=== PATIENT | female | born 1965 | race African-American/Black ===

== ENCOUNTER 2017-02-25 13:00 | Inpatient (IN) | payer MEDICARE ==
[2017-02-25 13:51] VITALS: BMI 41.1
[2017-03-03] MEDS ORDERED: Fentanyl 100 MCG/2 ML VIAL ONE ×2 (06:37→09:01)
[2017-03-03] MEDS ORDERED: Midazolam HCl 2 mg/2 ml Vial ONE (06:37)
[2017-03-03] MEDS ORDERED: Bupivacaine/Epinephrine 0.25% 30 ML VIAL ONE ×2 (06:41)
[2017-03-03] MEDS ORDERED: Heparin 5,000 UNITS/ML VIAL ONE (07:01)
[2017-03-03] MEDS ORDERED: Scopolamine 1.5 mg/72 hour Patch ONE (07:01)
[2017-03-03] MEDS ORDERED: Levofloxacin 500 mg/D5W 100 ml Premix Bag ONE (07:01)
--- NOTE | 2017-03-03 07:37 | HP ---
CHIEF COMPLAINT: Morbid obesity. HISTORY: The patient is a 51-year-old female, morbidly obese, who has attempted multiple weight loss programs without success. She is here for sleeve gastrectomy. PAST MEDICAL HISTORY: Significant for diabetes, hypertension, and dyslipidemia. PAST SURGICAL HISTORY: Includes , hysterectomy with LSO, thyroid cystectomy, parathyroidect edith. MEDICATIONS: Includes Lisinopril, fluconazole, lorazepam, albuterol, aspirin, Azelastine, Crestor, F lexeril, Prozac, Indocin, Xyzal, levothyroxine, Amitiza, metformin, methylprednisolone, multivitamins , omega 3, Protonix, phentermine, promethazine, Codeine, Risperdal, and Zanaflex. ALLERGIES: She has allergies to AUGMENTIN and PENICILLIN. FAMILY HISTORY: Father of heart disease. Mother is 83 with heart disease. SOCIAL HISTORY: She does not use tobacco or alcohol. PHYSICAL EXAMINATION: VITAL SIGNS: Height 5 foot 3 inches, weight 230, body mass index 40.74. Blood pressure 119/68, puls e 76. GENERAL: Well-developed, well-nourished female, in no apparent distress. HEENT: Good hair growth. No alopecia. Pupils equal, round, and reactive. Extraocular motor intact . Pharynx clear. Good dentition. NECK: Supple, no thyroid masses, no carotid bruits. LUNGS: Clear. HEART: Regular rate and rhythm. ABDOMEN: Soft, nondistended, nontender. EXTREMITIES: Unremarkable. ASSESSMENT: Morbid obesity with comorbidities. PLAN: Laparoscopic sleeve gastrectomy. CONSENT: I have discussed the planned procedure as well as risk of bleeding, infection, injury to es ophagus, spleen, loops of bowel, need to open. She understands and gives informed consent.
[2017-03-03] MEDS ORDERED: hydrALAZINE 20 MG/ML VIAL SLOW IVP PRN (08:25)
[2017-03-03] MEDS ORDERED: Dextrose 50% Abboject 50 ML SYRINGE SLOW IVP PRN (08:25)
[2017-03-03] MEDS ORDERED: Hydrocodone-Acetamin 15 ML UDCUP PO PRN (08:25)
[2017-03-03] MEDS ORDERED: Promethazine HCl 25 MG/ML VIAL IM PRN ×4 (08:25→08:39)
[2017-03-03] MEDS ORDERED: Ondansetron HCl/PF 4 MG/2 ML Vial IVP PRN ×4 (08:25→08:39)
[2017-03-03] MEDS ORDERED: Dextrose 5% in Water 1,000 ML IV PRN (08:25)
[2017-03-03] MEDS ORDERED: diphenhydrAMINE 50 MG/ML VIAL IVP PRN ×3 (08:25→08:39)
[2017-03-03] MEDS ORDERED: Fentanyl 20 MCG/ML 250 ML ONE (08:30)
--- NOTE | 2017-03-03 08:36 | OP ---
PREOPERATIVE DIAGNOSIS: Morbid obesity. SURGEON: Demarcus George M.D. PROCEDURES PERFORMED: Laparoscopic sleeve gastrectomy, intraoperative esophagogastroscopy. INDICATIONS: The patient is a 51-year-old female, morbidly obese, who has attempted multiple weight loss programs without success. FINDINGS: A 38 Faroese bougie used. PROCEDURE IN DETAIL: After informed consent was obtained, patient was taken to the operating room an d given general endotracheal anesthesia. She was placed in the supine position. The abdomen was pre pped and draped in the usual fashion. Local anesthesia infiltrated subcutaneously and deep. A 12 mm incision was performed approximately 8 inches below the xiphoid slightly to the left. Veress needle inserted. Drop test performed. Pneumoperitoneum was created to a volume of 2 liters of carbon diox keny. Utilizing a bladeless 12 mm trocar and 0 degree laparoscope, direct visual entry in the abdomin al cavity was performed. Pneumoperitoneum was then created to a pressure of [address] aced in a steep reverse Trendelenburg position. Nathansen liver retractor inserted. Left lobe of li karson retracted superiorly. The pylorus identified. A 12 mm port placed on the right beneath it and t wo 12s placed left subcostal. The omentum was taken off the greater curvature of 5 cm from the pylor us utilizing the LigaSure. Short gastrics divided with the LigaSure. Left crura defined with the Li gaSure, then the right crura was defined as she had a small hiatal hernia. This was dissected out an d reduced. The 38-Faroese bougie inserted directed into the antrum. The linear 60 mm green load stap ler used to divide the antrum to the bougie, gold load along the bougie, and a series of blues throug h the angle of His. Intraoperative endoscopy was performed. The video endoscope inserted under dire ct vision and advanced into the sleeve. The staple line inspected. There was no bleeding. Staple l ine then tested by inflating the new stomach with pressurized air under water. There was no air leak . The scope removed. The remnant stomach removed from the abdomen through the left lateral port sit e. Fascia closed with 0 Vicryl suture and the GraNee needle. Trocars and retractors removed. The s kin closed with interrupted 4-0 Rapide. Dermabond applied. The patient tolerated the procedure well and transferred to recovery in good condition. Sponge and needle count verified correct x2.
[2017-03-03] MEDS ORDERED: diphenhydrAMINE 50 MG/ML VIAL IM PRN ×2 (08:38→08:39)
[2017-03-03] MEDS ORDERED: Naloxone HCl 0.4 mg/ml Vial IV PRN ×2 (08:38→08:39)
[2017-03-03] MEDS ORDERED: Promethazine HCl 25 MG/ML VIAL SLOW IVP PRN (08:38)
[2017-03-03] MEDS ORDERED: Zolpidem Tartrate 5 MG TAB PO PRN ×2 (08:38→08:39)
[2017-03-03] MEDS ORDERED: diphenhydrAMINE 25 MG CAP PO PRN ×2 (08:38→08:39)
[2017-03-03] MEDS ORDERED: Fentanyl 5000 MCG/250 ML CADD IVPB PRN (08:39)
[2017-03-03] MEDS ORDERED: Communication Order-Pharmacy FS SCH ×2 (08:45)
[2017-03-03] MEDS: Pantoprazole 40 MG VIAL IVP SCH (15:10)
[2017-03-03] MEDS: Enoxaparin Sodium 40 MG/0.4 ML SYRINGE SC SCH (15:10)
[2017-03-03] MEDS ORDERED: Dexamethasone 20 MG/5 ML VIAL ONE (16:16)
[2017-03-03] MEDS ORDERED: Ketorolac Tromethamine 30 MG/ML VIAL ONE (16:16)
[2017-03-03] MEDS ORDERED: Glycopyrrolate 0.2 MG/ML 5 ML SYRINGE ONE (16:16)
[2017-03-03] MEDS ORDERED: Ondansetron HCl/PF 4 MG/2 ML Vial ONE (16:16)
[2017-03-03] MEDS ORDERED: Lidocaine 1% PF 5 ML VIAL ONE (16:16)
[2017-03-03] MEDS ORDERED: Propofol 200 MG/20 ML VIAL ONE (16:16)
[2017-03-03] MEDS ORDERED: diphenhydrAMINE 50 MG/ML VIAL ONE (16:16)
[2017-03-03] MEDS: 1/2 NS w/KCL 20 mEq 1,000 ML IV SCH ×2 (18:22→18:23)
[2017-03-04] MEDS: 1/2 NS w/KCL 20 mEq 1,000 ML IV SCH ×2 (02:30→11:06)
[2017-03-04 04:31] VITALS: TEMP 97.9
[2017-03-04 06:12] LABS: #Lymphocytes 1.7 thou/uL (1.20-3.40); #Monocytes 0.8 thou/uL (0.11-0.59); #Neutrophils 4.3 thou/uL (1.40-6.50); %Basophils 0.6 % (0.0-1.0); %Eosinophils 0.2 % (0.0-10.0); %Lymphocytes 24.4 % (21.0-51.0); %Monocytes 11.9 % (0.0-10.0); Hematocrit 33.9 % (36.0-47.0); Mean Platelet Volume 8.3 fL (7.4-10.4); White Blood Cell (WBC) Count 6.9 thou/uL (4.8-10.8)
[2017-03-04 06:26] LABS: Anion Gap 11 mmol/L (10-20); BUN (Urea Nitrogen) 8 mg/dL (9.8-20.1); Calc. Creatinine Clearance 155 mL/min (70-130); Carbon Dioxide 23 mmol/L (22-29); Chloride 105 mmol/L (98-107); Estimated GFR-MDRD Greater than 90
[2017-03-04 07:05] VITALS: BP 153/82
[2017-03-04] MEDS: Pantoprazole 40 MG VIAL IVP SCH (07:56)
[2017-03-04] MEDS: Enoxaparin Sodium 40 MG/0.4 ML SYRINGE SC SCH (07:56)
--- NOTE | 2017-03-04 08:43 | RAD ---
UPPER GI: Indication: History of recent gastric sleeve and hiatal hernia repair. Contrast: 15 cc of Gastrografin contrast PO. FINDINGS: There is post-surgical change from gastric sleeve procedure. No significant obstruction or contrast e xtravasation is noted. Total fluoroscopic time was 7 seconds. Total exposure was 73.84 mGy*cm^2. IMPRESSION: No evidence of obstruction or extravasation. POS: JEROME
--- NOTE | 2017-03-04 14:05 | DIS ---
DISCHARGE DIAGNOSIS: Morbid obesity. PROCEDURES DURING ADMISSION: Laparoscopic sleeve gastrectomy, intraoperative esophagogastroscopy, po stoperative Gastrografin swallow. HOSPITAL COURSE: The patient was admitted, taken to the operating room where she underwent sleeve. Postoperatively, she has done well. She is tolerating liquids well. Her x-ray was fine. Pain is co ntrolled. She is discharged on hydrocodone elixir and Zofran. She will follow up with me in 2 weeks .
== END 2017-03-04 15:55 | disposition home or self-care (01) | DRG 621 ==
LOC: SURG A 03-03 05:48 → SURG B 03-03 09:32 → EDSTATUS 03-03 13:00
PROVIDERS: ADMIT Surgery; ATTEND Surgery
PROC: 0DB64Z3 Excision of Stomach, Percutaneous Endoscopic Approach, Vertical (ICD-10-PCS; principal; 2017-03-03)
DX: E66.01 Morbid (severe) obesity due to excess calories (principal); I10 Essential (primary) hypertension; K44.9 Diaphragmatic hernia without obstruction or gangrene; E11.9 Type 2 diabetes mellitus without complications; Z68.41 Body mass index [BMI] 40.0-44.9, adult; E78.5 Hyperlipidemia, unspecified; F32.9 Major depressive disorder, single episode, unspecified; F41.1 Generalized anxiety disorder; E89.2 Postprocedural hypoparathyroidism
CPT/HCPCS: 36415; 74241; 80048; 85025; 88307; 88312; C9113; J0131; J1100; J1200; J1644; J1650; J1885; J1956; J2001; J2250; J2405; J2704; J3010

== ENCOUNTER 2017-02-25 13:12 | Outpatient (CLI) | payer MEDICARE ==
--- NOTE | 2017-02-25 15:52 | RAD ---
RADIOGRAPH CHEST 2 VIEWS: 02/25/17 HISTORY: 51-year-old female with acute chest pain. FINDINGS: There is no air space density, pulmonary edema, pleural effusion, pneumothorax, or cardiomegaly. IMPRESSION: No acute cardiopulmonary findings. errol [] POS: SEBASTIÁN
[2017-02-25 15:53] LABS: Hemoglobin A1c 5.9 % (4.0-6.0)
[2017-02-25 16:06] LABS: ALT (SGPT) 23 U/L (8-55); AST (SGOT) 27 U/L (5-34); Alkaline Phosphatase 92 U/L (40-150); Bilirubin, Direct 0.3 mg/dL (0.1-0.3); Bilirubin, Total 0.5 mg/dL (0.2-1.2); Protein, Total 8.6 g/dL (6.0-8.3)
--- NOTE | 2017-02-26 07:45 | EKG ---
Test Reason : Blood Pressure : / mmHG Vent. Rate : 079 BPM Atrial Rate : 079 BPM P-R Int : 146 ms QRS Dur : 074 ms QT Int : 376 ms P-R-T Axes : 061 064 031 degrees QTc Int : 431 ms Normal sinus rhythm Normal ECG When compared with ECG of 06-APR-2015 04:07, No significant change was found Confirmed by NARGIS WILSON ([id number]) on 02/26/2017 7:45:46 AM Referred By: SILVIA Confirmed By:NARGIS WILSON
== END 2017-02-25 13:13 | disposition home or self-care (01) ==
LOC: LABBT 13:12
PROVIDERS: ATTEND Surgery
DX: Z01.818 Encounter for other preprocedural examination (principal); E11.9 Type 2 diabetes mellitus without complications; E78.5 Hyperlipidemia, unspecified; I10 Essential (primary) hypertension; Z68.41 Body mass index [BMI] 40.0-44.9, adult
CPT/HCPCS: 71020; 80076; 83036; 93005; 93010

== ENCOUNTER 2018-07-20 14:28 | Emergency (ER) | payer MEDICARE | END 2018-07-20 14:37 | disposition left against medical advice (07) | LOC: ERS 14:28 | DX: Z53.21 Procedure and treatment not carried out due to patient leaving prior to being seen by health care provider (principal) ==

== ENCOUNTER 2022-10-17 10:58 | Emergency (ER) | payer OTHER ==
[2022-10-17 11:53] LABS: Hemoglobin 11.1 g/dL (12.0-16.0); Mean Corpuscular HGB CONC 34.5 g/dL (32.0-36.0); Mean Corpuscular Hemoglobin 29.6 pg (27.0-31.0); Mean Corpuscular Volume 85.9 fl (78.0-98.0); Mean Platelet Volume 10.7 fL (7.4-10.4); Platelet Count 295 10x3/uL (130-400); RBC Distribution Width 12.9 % (11.5-14.5); Red Blood Cell (RBC) Count 3.75 mill/uL (4.20-5.40); White Blood Cell (WBC) Count 3.9 10x3/uL (4.8-10.8)
[2022-10-17 11:58] LABS: Delete Auto Diff?? YES; Manual Diff?? YES
[2022-10-17 12:01] LABS: Bacteria/HPF None Seen HPF (None Seen); Bilirubin Negative (Negative); Blood, Urine Negative (Negative); CAUTI Indications for Culture < 2yrs of age; Clarity Clear (Clear); Glucose, Urine (Dipstick) Normal (Negative); Ketone, Urine Negative (Negative); Leukocyte Negative Leu/uL (Negative); Nitrite Negative (Negative); Protein, Urine (Dipstick) Negative (Neg-Trace); RBC/HPF 0-3 HPF (0-3); Specific Gravity, Urine 1.003 (1.002-1.036); Squamous Epithelial 0-3 HPF (0-3); Urobilinogen Normal mg/dL (Less than 2); WBC/HPF 0-3 HPF (0-3)
[2022-10-17 12:03] LABS: Urine Culture Reflex Yes Yes
[2022-10-17 12:13] LABS: ALT (SGPT) 15 U/L (8-55); AST (SGOT) 17 U/L (5-34); Albumin 4.2 g/dL (3.5-5.0); Alkaline Phosphatase 96 U/L (40-110); Anion Gap 10 mmol/L (10-20); BUN (Urea Nitrogen) 10 mg/dL (9.8-20.1); Bilirubin, Total 0.4 mg/dL (0.2-1.2); Calc. Creatinine Clearance 0 mL/min (70-130); Calcium 9.1 mg/dL (7.8-10.44); Carbon Dioxide 27 mmol/L (22-29); Chloride 107 mmol/L (98-107); Estimated GFR 89; Globulin 3.3 g/dL (2.4-3.5); Glucose 88 mg/dL (70-105); Potassium 4.1 mmol/L (3.5-5.1); Protein, Total 7.5 g/dL (6.0-8.3); Sodium 140 mmol/L (136-145)
[2022-10-17 12:35] LABS: Band 3 % (5-11); CellaVision Operator ID LAB.GE; Eosinophils 7 % (0-10); Giant Platelets 2.9 % (0-5); Large Platelets 8.7 % (0-5); Lymphocytes 25 % (21-51); Macrocytosis SLIGHT = 6-15 cells HPF (0-5); Monocytes 8 % (0-10); Myelocyte 1 % (0-0); Neutrophil 49 % (42-75); Platelet Adequacy Comment Platelets Normal; Reactive Lymphocytes 3 % (0-10); Total Cell Count 103
== END 2022-10-17 13:30 | disposition home or self-care (01) ==
LOC: ERS 10:58
DX: R06.02 Shortness of breath (principal); R79.89 Other specified abnormal findings of blood chemistry; R07.89 Other chest pain; E11.9 Type 2 diabetes mellitus without complications; E03.9 Hypothyroidism, unspecified; I10 Essential (primary) hypertension; Z79.899 Other long term (current) drug therapy
CPT/HCPCS: 71045; 80053; 81001; 83880; 84484; 85025; 87086; 93005

== ENCOUNTER 2023-02-02 12:07 | Emergency (ER) | payer MEDICARE ==
[~2023-02-02 12:07] MED LIST: Iopamidol-370 76% 500 ML MDV (1 ML CHARGE) ONE
[2023-02-02 13:07] LABS: Bilirubin Negative (Negative); Blood, Urine Negative (Negative); Clarity Clear (Clear); Glucose, Urine (Dipstick) Normal (Negative); Ketone, Urine Negative (Negative); Leukocyte Negative Leu/uL (Negative); Nitrite Negative (Negative); Protein, Urine (Dipstick) Negative (Neg-Trace); Specific Gravity, Urine 1.005 (1.002-1.036); Urobilinogen Normal mg/dL (Less than 2); pH, Urine 7.5 (5.0-9.0)
[2023-02-02 13:16] LABS: CAUTI Indications for Culture Acute Hematuria; RBC/HPF None Seen HPF (0-3); Squamous Epithelial None Seen HPF (0-3); WBC/HPF None Seen HPF (0-3)
[2023-02-02 13:17] LABS: Urine Culture Reflex No No
[2023-02-02 15:24] LABS: Delete Auto Diff?? YES; Hematocrit 37.3 % (36.0-47.0); Hemoglobin 12.3 g/dL (12.0-16.0); Manual Diff?? YES; Mean Corpuscular Hemoglobin 29.6 pg (27.0-31.0); Mean Corpuscular Volume 89.9 fl (78.0-98.0); Mean Platelet Volume 10.5 fL (7.4-10.4); Platelet Count 347 10x3/uL (130-400); RBC Distribution Width 13.1 % (11.5-14.5); Red Blood Cell (RBC) Count 4.15 mill/uL (4.20-5.40); White Blood Cell (WBC) Count 4.3 10x3/uL (4.8-10.8)
[2023-02-02 15:38] LABS: ALT (SGPT) 21 U/L (8-55); AST (SGOT) 17 U/L (5-34); Albumin 4.6 g/dL (3.5-5.0); Alkaline Phosphatase 85 U/L (40-110); Anion Gap 11 mmol/L (10-20); BUN (Urea Nitrogen) 8 mg/dL (9.8-20.1); Bilirubin, Total 0.3 mg/dL (0.2-1.2); Calc. Creatinine Clearance 0 mL/min (70-130); Calcium 9.8 mg/dL (7.8-10.44); Carbon Dioxide 26 mmol/L (22-29); Chloride 105 mmol/L (98-107); Estimated GFR 80; Globulin 3.2 g/dL (2.4-3.5); Glucose 88 mg/dL (70-105); Lipase 16 U/L (8-78); Potassium 4.1 mmol/L (3.5-5.1); Protein, Total 7.8 g/dL (6.0-8.3); Sodium 138 mmol/L (136-145)
[2023-02-02 15:44] LABS: Band 2 % (5-11); CellaVision Operator ID LAB.MJL; Eosinophils 2 % (0-10); Lymphocytes 37 % (21-51); Metamyelocyte 1 % (0-0); Monocytes 6 % (0-10); Myelocyte 1 % (0-0); Neutrophil 48 % (42-75); Ovalocytes SLIGHT = 2-5 cells HPF (0-1); Platelet Adequacy Comment Platelets Normal; Reactive Lymphocytes 1 % (0-10); Total Cell Count 100
[2023-02-02] MEDS ORDERED: Ketorolac Tromethamine 30 MG/ML VIAL ONE (16:27)
== END 2023-02-02 18:41 | disposition home or self-care (01) ==
LOC: ERS 12:07
DX: R10.11 Right upper quadrant pain (principal); R10.31 Right lower quadrant pain; E11.9 Type 2 diabetes mellitus without complications; E03.9 Hypothyroidism, unspecified; Z79.899 Other long term (current) drug therapy; I10 Essential (primary) hypertension
CPT/HCPCS: 71045; 74177; 80053; 81001; 83690; 85025; 86140; 96374; J1885; Q9967

== ENCOUNTER 2023-10-10 13:37 | Emergency (ER) | payer MEDICARE | END 2023-10-10 15:53 | disposition home or self-care (01) | LOC: ERS 13:37 | DX: K29.70 Gastritis, unspecified, without bleeding (principal); J01.90 Acute sinusitis, unspecified; B96.89 Other specified bacterial agents as the cause of diseases classified elsewhere; I10 Essential (primary) hypertension; E11.9 Type 2 diabetes mellitus without complications; Z87.891 Personal history of nicotine dependence | CPT/HCPCS: 93005 ==

== ENCOUNTER 2023-10-13 12:20 | Emergency (ER) | payer MEDICARE ==
[2023-10-13] MEDS ORDERED: Iopamidol-370 76% 500 ML MDV (1 ML CHARGE) ONE (12:45)
[2023-10-13 13:48] LABS: #Basophils Less than 0.03 10x3/uL (0.0-0.2); %Basophils 0.2 % (0.0-1.0); %Eosinophils 1.5 % (0.0-10.0); %Lymphocytes 48.8 % (21.0-51.0); %Monocytes 14.6 % (0.0-10.0); %Neutrophils 34.7 % (42.0-75.0); Hematocrit 34.6 % (36.0-47.0); Hemoglobin 11.8 g/dL (12.0-16.0); Mean Corpuscular HGB CONC 34.1 g/dL (32.0-36.0); Mean Corpuscular Hemoglobin 29.6 pg (27.0-31.0); Mean Corpuscular Volume 86.7 fL (78.0-98.0); Mean Platelet Volume 10.1 fL (7.4-10.4); Platelet Count 325 10x3/uL (130-400); RBC Distribution Width 12.1 % (11.5-14.5); Red Blood Cell (RBC) Count 3.99 mill/uL (4.20-5.40)
[2023-10-13 13:50] LABS: Bacteria/HPF None Seen HPF (None Seen); Bilirubin Negative (Negative); Blood, Urine Negative (Negative); CAUTI Indications for Culture Pelvic or flank pain; Clarity Clear (Clear); Glucose, Urine (Dipstick) Normal (Negative); Ketone, Urine Negative (Negative); Leukocyte Negative Leu/uL (Negative); Nitrite Negative (Negative); Protein, Urine (Dipstick) Negative (Neg-Trace); RBC/HPF None Seen HPF (0-3); Specific Gravity, Urine 1.013 (1.002-1.036); Squamous Epithelial None Seen HPF (0-3); Urobilinogen Normal mg/dL (Less than 2); WBC/HPF None Seen HPF (0-3); pH, Urine 7.5 (5.0-9.0)
[2023-10-13 13:51] LABS: Urine Culture Reflex No No
[2023-10-13 14:03] LABS: ALT (SGPT) 10 U/L (8-55); AST (SGOT) 14 U/L (5-34); Albumin 4.1 g/dL (3.5-5.0); Alkaline Phosphatase 96 U/L (40-110); Anion Gap 13 mmol/L (10-20); BUN (Urea Nitrogen) 17 mg/dL (9.8-20.1); Bilirubin, Total 0.6 mg/dL (0.2-1.2); Calc. Creatinine Clearance 0 mL/min (70-130); Carbon Dioxide 25 mmol/L (22-29); Chloride 102 mmol/L (98-107); Estimated GFR 51; Globulin 3.6 g/dL (2.4-3.5); Glucose 98 mg/dL (70-105); Lipase 14 U/L (8-78); Potassium 4.1 mmol/L (3.5-5.1); Protein, Total 7.7 g/dL (6.0-8.3); Sodium 136 mmol/L (136-145)
[2023-10-13 14:09] LABS: Troponin I Less than 0.010 ng/mL (< 0.028)
[2023-10-13] MEDS ORDERED: Lidocaine 2% Viscous 10 mL, Alum & Magn 30 mL SSW SCH (15:00)
== END 2023-10-13 16:00 | disposition home or self-care (01) ==
LOC: ERS 12:20
DX: K21.9 Gastro-esophageal reflux disease without esophagitis (principal); I10 Essential (primary) hypertension; E11.9 Type 2 diabetes mellitus without complications; K58.9 Irritable bowel syndrome, unspecified; Z87.891 Personal history of nicotine dependence; Z79.899 Other long term (current) drug therapy
CPT/HCPCS: 71045; 74177; 80053; 81001; 83690; 84484; 85025; 93005; Q9967

== ENCOUNTER 2024-02-07 13:08 | Observation (INO) | payer MEDICARE ==
[2024-02-07 13:37] LABS: Hematocrit 33.6 % (36.0-47.0); Mean Corpuscular HGB CONC 32.7 g/dL (32.0-36.0); Mean Corpuscular Hemoglobin 28.9 pg (27.0-31.0); Mean Corpuscular Volume 88.2 fL (78.0-98.0); Mean Platelet Volume 10.4 fL (7.4-10.4); Platelet Count 306 10x3/uL (130-400); RBC Distribution Width 12.6 % (11.5-14.5); Red Blood Cell (RBC) Count 3.81 mill/uL (4.20-5.40)
[2024-02-07 13:59] LABS: Anisocytosis SLIGHT = 6-15 cells HPF (0-5); Band 1 % (5-11); Eosinophils 1 % (0-10); Lymphocytes 46 % (21-51); Monocytes 9 % (0-10); Neutrophil 40 % (42-75); Plasma Cells 1 % (0-0); Platelet Adequacy Comment Platelets Normal
[2024-02-07 14:06] LABS: ALT (SGPT) 11 U/L (8-55); AST (SGOT) 14 U/L (5-34); Albumin 3.5 g/dL (3.5-5.0); Alkaline Phosphatase 91 U/L (40-110); Anion Gap 14 mmol/L (10-20); BUN (Urea Nitrogen) 16 mg/dL (9.8-20.1); Bilirubin, Total 0.3 mg/dL (0.2-1.2); Calc. Creatinine Clearance 0 mL/min (70-130); Calcium 8.9 mg/dL (7.8-10.44); Carbon Dioxide 26 mmol/L (22-29); Chloride 104 mmol/L (98-107); Estimated GFR 87; Globulin 3.8 g/dL (2.4-3.5); Glucose 92 mg/dL (70-105); Potassium 4.3 mmol/L (3.5-5.1); Protein, Total 7.3 g/dL (6.0-8.3); Sodium 140 mmol/L (136-145); Troponin I Less than 0.010 ng/mL (< 0.028)
[2024-02-07 15:18] LABS: Bacteria/HPF None Seen HPF (None Seen); Bilirubin Negative (Negative); Blood, Urine Negative (Negative); CAUTI Indications for Culture Dysuria,urgency,freq; Clarity Clear (Clear); Glucose, Urine (Dipstick) Normal (Negative); Ketone, Urine Negative (Negative); Leukocyte Negative Leu/uL (Negative); Nitrite Negative (Negative); Protein, Urine (Dipstick) 10 mg/dL (Neg-Trace); RBC/HPF 0-3 HPF (0-3); Specific Gravity, Urine 1.013 (1.002-1.036); Squamous Epithelial None Seen HPF (0-3); Urobilinogen Normal mg/dL (Less than 2); WBC/HPF 0-3 HPF (0-3)
[2024-02-07 15:19] LABS: Urine Culture Reflex No No
[2024-02-07] MEDS ORDERED: Ondansetron PF 4 MG/2 ML Vial IVP PRN (16:51)
[2024-02-07] MEDS ORDERED: Senokot S 8.6-50 MG TAB PO PRN (16:51)
[2024-02-07] MEDS ORDERED: Ondansetron ODT 4 MG TAB PO PRN (16:51)
[2024-02-07] MEDS ORDERED: Acetaminophen 650 MG Suppository PR PRN (16:51)
[2024-02-07] MEDS ORDERED: Acetaminophen 325 MG TAB PO PRN (16:51)
[2024-02-07 17:18] LABS: Magnesium 1.9 mg/dL (1.6-2.6)
[2024-02-07] MEDS ORDERED: Dextrose 50% Abboject 50 ML SYRINGE SLOW IVP PRN (17:52)
[2024-02-07] MEDS ORDERED: Insulin Lispro 100 UNIT/ML 10 ML VIAL SC PRN ×2 (17:52)
[2024-02-07] MEDS ORDERED: Dextrose 5% in Water 1,000 ML IV PRN (17:52)
[2024-02-07] MEDS ORDERED: Glucagon 1 MG/ML KIT IM PRN (17:52)
[2024-02-07 18:12] VITALS: BMI 28.0
[2024-02-07] MEDS: Lactated Ringer's 1,000 ML IV SCH (18:30)
[2024-02-07 18:48] LABS: Magnesium 1.8 mg/dL (1.6-2.6)
[2024-02-08 05:16] LABS: Anion Gap 12 mmol/L (10-20); BUN (Urea Nitrogen) 13 mg/dL (9.8-20.1); Calc. Creatinine Clearance 91 mL/min (70-130); Calcium 8.7 mg/dL (7.8-10.44); Carbon Dioxide 24 mmol/L (22-29); Chloride 109 mmol/L (98-107); Estimated GFR 88; Glucose 88 mg/dL (70-105); Sodium 141 mmol/L (136-145)
[2024-02-08] MEDS: Levothyroxine Sodium 50 MCG TAB PO SCH (05:27)
[2024-02-08 05:31] LABS: Hematocrit 30.9 % (36.0-47.0); Mean Corpuscular HGB CONC 32.4 g/dL (32.0-36.0); Mean Corpuscular Hemoglobin 28.3 pg (27.0-31.0); Mean Corpuscular Volume 87.5 fL (78.0-98.0); Mean Platelet Volume 10.7 fL (7.4-10.4); Platelet Count 284 10x3/uL (130-400); RBC Distribution Width 12.7 % (11.5-14.5); Red Blood Cell (RBC) Count 3.53 mill/uL (4.20-5.40)
[2024-02-08 06:47] LABS: Anisocytosis SLIGHT = 6-15 cells HPF (0-5); Band 2 % (5-11); Elliptocytes SLIGHT = 2-5 cells HPF (0-1); Eosinophils 2 % (0-10); Lymphocytes 40 % (21-51); Monocytes 8 % (0-10); Neutrophil 44 % (42-75); Platelet Adequacy Comment Platelets Normal; Reactive Lymphocytes 5 % (0-10); Smudge Cells 7.9 %
[2024-02-08 08:10] VITALS: TEMP 97.9
[2024-02-08] MEDS: Famotidine 20 MG TAB PO SCH (08:44)
[2024-02-08] MEDS: FLUoxetine HCl 20 MG CAP PO SCH (08:44)
[2024-02-08] MEDS: Pantoprazole DR 40 MG TAB PO SCH (08:49)
[2024-02-08 12:03] VITALS: BP 139/67
== END 2024-02-08 15:45 | disposition home or self-care (01) ==
LOC: ERS 13:08 → OBS 16:54
PROVIDERS: ADMIT Internal Medicine; ATTEND Internal Medicine
PROC: B24BZZZ Ultrasonography of Heart with Aorta (ICD-10-PCS; principal; 2024-02-08)
DX: R55 Syncope and collapse (principal); I10 Essential (primary) hypertension; E11.9 Type 2 diabetes mellitus without complications; D64.9 Anemia, unspecified; F32.A Depression, unspecified; F41.9 Anxiety disorder, unspecified; K44.9 Diaphragmatic hernia without obstruction or gangrene; K64.9 Unspecified hemorrhoids; K58.9 Irritable bowel syndrome, unspecified; Z86.73 Personal history of transient ischemic attack (TIA), and cerebral infarction without residual deficits; Z87.891 Personal history of nicotine dependence; Z98.84 Bariatric surgery status; Z90.710 Acquired absence of both cervix and uterus; Z88.0 Allergy status to penicillin; Z79.890 Hormone replacement therapy; Z79.899 Other long term (current) drug therapy
CPT/HCPCS: 70450; 71045; 71260; 80048; 81001; 82607; 82962 ×2; 83735; 84443; 84484; 85025; 93005; 93306; G0378 ×3; J7120; Q9967; 36415; 36416; 80053